=== PATIENT | female | born 1990 | race African-American/Black ===

== ENCOUNTER 2020-11-29 22:03 | Emergency (ER) | payer OTHER ==
[~2020-11-29] VITALS: Ht 167.6 cm; Wt 59.0 kg
[2020-11-30] MEDS ORDERED: NORCO5 PO (00:31)
[2020-11-30 00:43] VITALS: BP 136/88
== END 2020-11-30 00:44 | disposition home or self-care (01) ==
LOC: ER 22:03
DX: T23.102A Burn of first degree of left hand, unspecified site, initial encounter (principal); X08.8XXA Exposure to other specified smoke, fire and flames, initial encounter; Y93.89 Activity, other specified; Y92.89 Other specified places as the place of occurrence of the external cause; Y99.8 Other external cause status